=== PATIENT | male | born 1995 | race Caucasian/White ===

== ENCOUNTER 2024-07-24 02:12 | Emergency (ER) | payer BC, SELFPAY ==
[2024-07-24 02:13] VITALS: BMI 22.5
[2024-07-24 02:16] VITALS: BP 120/74
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
[2024-07-24] MEDS: MOTRIN 800 MG PO (02:58)
[2024-07-24 03:02] VITALS: BP 135/80
== END 2024-07-24 03:05 | disposition home or self-care (01) ==
LOC: EMR 02:12
PROVIDERS: EMERGENCY PHYSICIAN Emergency Medicine
DX: S05.02XA Injury of conjunctiva and corneal abrasion without foreign body, left eye, initial encounter (principal); W50.0XXA Accidental hit or strike by another person, initial encounter; Y93.75 Activity, martial arts; F17.200 Nicotine dependence, unspecified, uncomplicated
CPT/HCPCS: 99283